=== PATIENT | female | born 1960 ===

== ENCOUNTER 2018-04-08 07:49 | Day surgery (SDC) | payer MEDICARE ==
[~2018-04-08] VITALS: Ht 160 cm; Wt 70.8 kg
[~2018-04-08 07:49] MED LIST: ACETAMINOPHEN-C1 TAB PO; ACETAMINOPHEN325 M1 PO; CYCLOBENZAPRINE10 MG PO; LEVOTHYROXINE100 MCG PO; LIPITOR10 MG PO; LORAZEPAM1 MG PO; METAMUCIL PACK3.4 GM PO; SENNA8.6 MG PO
== END 2018-04-08 09:53 | disposition home or self-care (01) ==
LOC: OPS 07:49 → DS 07:49 → OPS 09:00
PROVIDERS: Ophthalmology
PROC: 08RJ3JZ Replacement of Right Lens with Synthetic Substitute, Percutaneous Approach (ICD-10-PCS; principal; 2018-04-08 09:00)
DX: E10.36 Type 1 diabetes mellitus with diabetic cataract (principal); H25.813 Combined forms of age-related cataract, bilateral; E78.00 Pure hypercholesterolemia, unspecified; F17.210 Nicotine dependence, cigarettes, uncomplicated; J45.909 Unspecified asthma, uncomplicated; Z79.899 Other long term (current) drug therapy
CPT/HCPCS: J2250

== ENCOUNTER 2018-04-22 07:13 | Day surgery (SDC) | payer MEDICARE ==
[~2018-04-22] VITALS: Ht 160 cm; Wt 70.8 kg
== END 2018-04-22 09:31 | disposition home or self-care (01) ==
LOC: DS 07:13 → OPS 07:13 → DS 08:45
PROVIDERS: Ophthalmology
PROC: 08RK3JZ Replacement of Left Lens with Synthetic Substitute, Percutaneous Approach (ICD-10-PCS; principal; 2018-04-22 08:45)
DX: E11.36 Type 2 diabetes mellitus with diabetic cataract (principal); H25.812 Combined forms of age-related cataract, left eye; F17.210 Nicotine dependence, cigarettes, uncomplicated; M19.90 Unspecified osteoarthritis, unspecified site; K59.00 Constipation, unspecified; Z79.899 Other long term (current) drug therapy
CPT/HCPCS: J2250